=== PATIENT | male | born 1965 | race American Indian/Alaskan Native ===

== ENCOUNTER 2017-08-26 18:44 | Inpatient (IN) | payer OTHER ==
[2017-08-26 19:13] LABS: Basophils % (Auto) 0.8 % (0.0-1.8); Eosinophils % (Auto) 1.7 % (0.0-4.3); Hematocrit 40.3 % (35.5-45.6); Hemoglobin 13.6 gm/dl (11.8-15.2); Mean Corpuscular HGB Conc 34 % (32-34); Mean Corpuscular Hemoglobin 32 pg (28-32); Mean Corpuscular Volume 93 fl (84-94); Platelet Count 176 K/mm3 (140-440); Red Blood Count 4.32 M/mm3 (3.65-5.03); Red Cell Distribution Width 14.4 % (13.2-15.2)
[2017-08-26 19:20] LABS: INR 0.96 (0.87-1.13)
[2017-08-26 19:21] LABS: Partial Thromboplastin Time 29.9 Sec. (24.2-36.6)
[2017-08-26 19:32] LABS: Anion Gap 19 mmol/L; BUN/Creatinine Ratio 21; Blood Urea Nitrogen 19 mg/dL (9-20); Carbon Dioxide 18 mmol/L (22-30); Chloride 103.3 mmol/L (98-107); Glucose 102 mg/dL (75-100); Potassium 4.1 mmol/L (3.6-5.0); Sodium 136 mmol/L (137-145)
--- NOTE | 2017-08-26 19:46 | Cat Scan Report ---
FINAL REPORT EXAM: CT HEAD/BRAIN WO CON HISTORY: neuro deficits \T\lt; 6hrs or sx present upon awakening TECHNIQUE: CT head without contrast PRIORS: None. FINDINGS: No acute intra-axial or extra-axial hemorrhage is identified. There is no evidence of midline shift or mass effect. The ventricles and sulci are within normal limits. Sinclair-white matter differentiation is intact. No acute parenchymal abnormalities seen. Bony calvarium is grossly intact. Visualized portions of the mastoids and paranasal sinuses are unremarkable. IMPRESSION: Negative CT head
[2017-08-26] MEDS ORDERED: ASPIRIN PO ONE (22:18)
--- NOTE | 2017-08-26 22:23 | Emergency Department Report ---
HPI - General Chief Complaint: Neuro Symptoms/Deficit Time Seen by Provider: 08/26/17 22:05 - HPI HPI: Room 4 The patient is a 51-year-old male presented with chief complaint of right sided weakness. The patient states he went to sleep this morning at 10:00 in his normal state of health when he awakened at 14:00 he noticed numbness and weakness in his right lower extremity. The patient thought he slept on his leg "wrong" so he got up and walked around and states that the symptoms improve momentarily. At approximately 15:00 the numbness and weakness of the right lower extremity returned making it difficult for him to ambulate. Patient states 1.5 weeks ago while changing a tire he believes he injured his right shoulder has had pain since that time. The patient also complains of numbness and weakness in her right upper extremity which he states he been present for 1.5 weeks. Patient denies dysarthria or dysphagia. Patient has a history of right-sided Miller's palsy Location: Right upper extremity, right lower extremity Duration: [See above] Quality:, Weakness Severity: Moderate Modifying factors: [see above] Context: [see above] Mode of transportation: [not driving] ED Past Medical Hx - Past Medical History Previous Medical History?: Yes Additional medical history: Miller's Palsy - Surgical History Past Surgical History?: No - Family History Family history: no significant - Social History Smoking Status: Current Some Day Smoker Substance Use Type: None (denies illicit drug use) - Medications Home Medications: Home Medications Medication Instructions Recorded Confirmed Last Taken Type Ibuprofen 800 mg PO PRN 08/26/17 08/26/17 Unknown History ED Review of Systems ROS: Stated complaint: RIGHT SIDE NUMBNESS Other details as noted in HPI Comment: All other systems reviewed and negative Constitutional: denies: chills, fever Eyes: denies: eye pain, eye discharge, vision change ENT: denies: ear pain, throat pain Respiratory: denies: cough, shortness of breath, wheezing Cardiovascular: denies: chest pain, palpitations Endocrine: no symptoms reported Gastrointestinal: denies: abdominal pain, nausea, diarrhea Genitourinary: denies: urgency, dysuria Musculoskeletal: denies: back pain, joint swelling, arthralgia Skin: denies: rash, lesions Neurological: weakness, paresthesias. denies: headache Psychiatric: denies: anxiety, depression Hematological/Lymphatic: denies: easy bleeding, easy bruising Physical Exam - Physical Exam Vital Signs: Vital Signs 08/26/17 18:53 Temperature 98.7 F Pulse Rate 71 Respiratory 18 Rate Blood Pressure 167/96 O2 Sat by Pulse 98 Oximetry Physical Exam: GENERAL: The patient is well-developed well-nourished male lying on a stretcher with obvious right facial droop from Miller's palsy. [] HEENT: Normocephalic. Atraumatic. Extraocular motions are intact. Right facial droop NECK: Supple. Trachea midline CHEST/LUNGS: There is no respiratory distress noted. HEART/CARDIOVASCULAR: Regular. There is no tachycardia. There is no gallop rub or murmur. ABDOMEN: Abdomen is soft, nontender. Patient has normal bowel sounds. There is no abdominal distention. SKIN: There is no rash. There is no edema. There is no diaphoresis. NEURO: The patient is awake, alert, and oriented. The patient is cooperative. Patient has a right seventh nerve palsy otherwise cranial nerves II through XII grossly intact. Patient is unable to raise right upper extremity and hold it off of the bed for more than one second. Bead Preparer equal bilaterally. Patient exhibits more difficulty flexing right lower extremity at the knee and hip compared to the left. The patient has normal speech MUSCULOSKELETAL: There is no evidence of acute injury. ED Course Vital Signs 08/26/17 18:53 Temperature 98.7 F Pulse Rate 71 Respiratory 18 Rate Blood Pressure 167/96 O2 Sat by Pulse 98 Oximetry ED Medical Decision Making - Lab Data Result diagrams: 08/26/17 18:49 08/26/17 18:49 Laboratory Tests 08/26/17 08/26/17 08/26/17 18:49 18:49 18:49 WBC 8.0 RBC 4.32 Hgb 13.6 Hct 40.3 MCV 93 MCH 32 MCHC 34 RDW 14.4 Plt Count 176 Lymph % (Auto) 33.5 [place] % (Auto) 10.8 H Eos % (Auto) 1.7 Baso % (Auto) 0.8 Lymph # 2.7 [place] # 0.9 H Eos # 0.1 Baso # 0.1 Seg Neutrophils % 53.2 Seg Neutrophils # 4.2 PT 13.3 INR 0.96 APTT 29.9 Thrombin Time Sodium 136 L Potassium 4.1 Chloride 103.3 Carbon Dioxide 18 L Anion Gap 19 BUN 19 Creatinine 0.9 Estimated GFR > 60 BUN/Creatinine Ratio 21 Glucose 102 H Calcium 9.0 Troponin T < 0.010 08/26/17 18:49 WBC RBC Hgb Hct MCV MCH MCHC RDW Plt Count Lymph % (Auto) [place] % (Auto) Eos % (Auto) Baso % (Auto) Lymph # [place] # Eos # Baso # Seg Neutrophils % Seg Neutrophils # PT INR APTT Thrombin Time 15.6 Sodium Potassium Chloride Carbon Dioxide Anion Gap BUN Creatinine Estimated GFR BUN/Creatinine Ratio Glucose Calcium Troponin T - EKG Data -: EKG Interpreted by Me EKG shows normal: sinus rhythm Rate: normal - EKG Data When compared to previous EKG there are: previous EKG unavailable Interpretation: nonspecific ST-T wave bruce (biphasic T-wave in lead 3) - Radiology Data Radiology results: report reviewed (CT head), image reviewed (CT head) CT head (read by radiologist)-negative CT head - Differential Diagnosis CVA, TIA Critical care attestation.: If time is entered above; I have spent that time in minutes in the direct care of this critically ill patient, excluding procedure time. ED Disposition Clinical Impression: CVA (cerebral vascular accident) Disposition: DC-09 OP ADMIT IP TO THIS HOSP Is pt being admited?: Yes Does the pt Need Aspirin: Yes Condition: Serious Referrals: PRIMARY CARE, [Primary Care Provider] - 3-5 Days Time of Disposition: 22:28 (hospitalist paged)
--- NOTE | 2017-08-26 23:07 | History and Physical Report ---
History of Present Illness Date of examination: 08/26/17 Date of admission: 08/26/17 22:29 Chief complaint: Right sided weakness and numbness History of present illness: 51-year-old [place] male with past medical history significant for hypertension, right fascial palsy presented to the emergency department with complaints of right-sided numbness and weakness. Patient said he went to bed at 10:30 this morning and when he woke up at 2 PM he couldn't stand up and find that he has weakness and numbness of the right upper and lower extremities. He has decreased medical referral coordinator on his right upper extremity. Patient denied headache, seizure-like activity, chest pain, palpitation. He shouldn't denied difficulty of swallowing, slurred speech. Patient was not on any blood pressure medications. REVIEW OF SYSTEMS: GENERAL: no weight change, no fatigue, no fever HEAD: no head ache EYES: no blurry vision, no acute visual loss EARS: no hearing loss, no discharge, no earache NOSE: no stuffiness, no sneezing, no discharge MOUTH, THROAT AND NECK: no bleeding gums, no sore throat, no swollen neck CARDIAC: no palpitations, no dyspnea on exertion, no orthopnea, no PND, no edema , no chest pain RESPIRATORY: no shortness of breath, no wheeze, no cough, no sputum, no hemoptysis, no asthma GI: no decreased appetite, no nausea, no vomiting, no dysphagia, no diarrhea, no constipation, no abdominal pain URINARY: no change in frequency, no urgency, no polyuria, no hematuria, no incontinence MUSCULOSKELETAL: no muscle weakness, no pain, no joint stiffness NEUROLOGIC: Weakness and numbness of the right extremities. HEMATOLOGIC: no anemia, no easy bruising SKIN: no rashes ENDOCRINE: no heat/cold intolerance, no polyuria, no polydipsia, no thyroid problems, no diabetes PSYCHIATRIC: no anxiety, no depression, no suicidal ideations Past History Past Medical History: hypertension Past Surgical History: No surgical history Social history: smoking (occasionally), full code. denies: alcohol abuse, prescription drug abuse, IV drug use Family history: no significant family history Medications and Allergies Allergies Allergy/AdvReac Type Severity Reaction Status Date / Time No Known Allergies Allergy Verified 08/26/17 18:53 Home Medications Medication Instructions Recorded Confirmed Last Taken Type Ibuprofen 800 mg PO PRN 08/26/17 08/26/17 Unknown History Exam - Physical Exam Narrative exam: Not in cardiopulmonary distress. The patient appeared well nourished and normally developed. Vital signs as documented. Head exam is unremarkable. No scleral icterus . Neck is without jugular venous distension, thyromegaly, or carotid bruits. Lungs are clear to auscultation. Cardiac exam reveals regular rate and Rhythm. First and second heart sounds normal. No murmurs, rubs or gallops. Abdominal exam reveals normal bowel sounds, no masses, no organomegaly and no aortic enlargement. Extremities are nonedematous and both femoral and pedal pulses are normal. BODY REPAIRER: Right upper and lower extremity weakness, right facial droop. - Constitutional Vitals: Temp Pulse Resp BP Pulse Ox 98.7 F 71 18 167/96 98 08/26/17 18:53 08/26/17 18:53 08/26/17 18:53 08/26/17 18:53 08/26/17 18:53 Results - Labs CBC & Chem 7: 08/26/17 18:49 08/26/17 18:49 Labs: Laboratory Last Values WBC 8.0 K/mm3 (4.5-11.0) 08/26/17 18:49 RBC 4.32 M/mm3 (3.65-5.03) 08/26/17 18:49 Hgb 13.6 gm/dl (11.8-15.2) 08/26/17 18:49 Hct 40.3 % (35.5-45.6) 08/26/17 18:49 MCV 93 fl (84-94) 08/26/17 18:49 MCH 32 pg (28-32) 08/26/17 18:49 MCHC 34 % (32-34) 08/26/17 18:49 RDW 14.4 % (13.2-15.2) 08/26/17 18:49 Plt Count 176 K/mm3 (140-440) 08/26/17 18:49 Lymph % (Auto) 33.5 % (13.4-35.0) 08/26/17 18:49 [place] % (Auto) 10.8 % (0.0-7.3) H 08/26/17 18:49 Eos % (Auto) 1.7 % (0.0-4.3) 08/26/17 18:49 Baso % (Auto) 0.8 % (0.0-1.8) 08/26/17 18:49 Lymph # 2.7 K/mm3 (1.2-5.4) 08/26/17 18:49 [place] # 0.9 K/mm3 (0.0-0.8) H 08/26/17 18:49 Eos # 0.1 K/mm3 (0.0-0.4) 08/26/17 18:49 Baso # 0.1 K/mm3 (0.0-0.1) 08/26/17 18:49 Seg Neutrophils % 53.2 % (40.0-70.0) 08/26/17 18:49 Seg Neutrophils # 4.2 K/mm3 (1.8-7.7) 08/26/17 18:49 PT 13.3 Sec. (12.2-14.9) 08/26/17 18:49 INR 0.96 (0.87-1.13) 08/26/17 18:49 APTT 29.9 Sec. (24.2-36.6) 08/26/17 18:49 Thrombin Time 15.6 Sec. (15.1-19.6) 08/26/17 18:49 Sodium 136 mmol/L (137-145) L 08/26/17 18:49 Potassium 4.1 mmol/L (3.6-5.0) 08/26/17 18:49 Chloride 103.3 mmol/L (98-107) 08/26/17 18:49 Carbon Dioxide 18 mmol/L (22-30) L 08/26/17 18:49 Anion Gap 19 mmol/L 08/26/17 18:49 BUN 19 mg/dL (9-20) 08/26/17 18:49 Creatinine 0.9 mg/dL (0.8-1.5) 08/26/17 18:49 Estimated GFR > 60 ml/min 08/26/17 18:49 BUN/Creatinine Ratio 21 % 08/26/17 18:49 Glucose 102 mg/dL (75-100) H 08/26/17 18:49 Calcium 9.0 mg/dL (8.4-10.2) 08/26/17 18:49 Troponin T < 0.010 ng/mL (0.00-0.029) 08/26/17 18:49 - Imaging and Cardiology CT Scan - head: report reviewed (No acute IC finding) Assessment and Plan Assessment and plan: Acute CVA - Patient was out of the window period When he presented to the emergency department - On aspirin, statin - CVA workup, neurology consult - PT/OT Hypertension - Permissive hypertension DVT prophylaxis - Lovenox Disposition - Admitted to telemetry Advance Directives: Yes VTE prophylaxis?: Chemical Plan of care discussed with patient/family: Yes
[2017-08-26] MEDS ORDERED: MILK OF MAGNESIA PO PRN (23:08)
[2017-08-26] MEDS ORDERED: SODIUM CHLORIDE FLUSH SYRINGE 10 ML IV PRN (23:08)
[2017-08-26] MEDS ORDERED: REGLAN PO PRN (23:08)
[2017-08-26] MEDS ORDERED: PHENERGAN PR PRN (23:08)
[2017-08-26] MEDS ORDERED: DULCOLAX PR PRN (23:08)
[2017-08-26] MEDS ORDERED: ZOFRAN IV PRN (23:08)
[2017-08-27 01:56] LABS: Urine Drugs of Abuse Note Disclamer
[2017-08-27] MEDS ORDERED: ASPIRIN PR SCH (10:00)
--- NOTE | 2017-08-27 12:17 | Consultation ---
History of Present Illness - Reason for Consult Consult date: 08/27/17 stroke - History of Present Illness went over the CT of the head and itis normal do not have formal report on the MRI as yet onset of symptoms and signs with right leg paralysis clinically suspect a stroke will review the studies Thanks plan to follow Past History Past Medical History: hypertension Past Surgical History: No surgical history Social history: smoking (occasionally), full code. denies: alcohol abuse, prescription drug abuse, IV drug use Family history: no significant family history Medications and Allergies Allergies Allergy/AdvReac Type Severity Reaction Status Date / Time No Known Allergies Allergy Verified 08/26/17 18:53 Home Medications Medication Instructions Recorded Confirmed Last Taken Type Ibuprofen 800 mg PO PRN 08/26/17 08/26/17 Unknown History Active Meds: Active Medications Acetaminophen (Tylenol) 650 mg PO Q4H PRN PRN Reason: Pain, Mild (1-3) Aspirin (Aspirin) 300 mg CA QDAY LILA Bisacodyl (Dulcolax) 10 mg CA QDAY PRN PRN Reason: Constipation Docusate Sodium (Colace) 100 mg PO BID LILA Magnesium Hydroxide (Milk Of Magnesia) 30 ml PO Q4H PRN PRN Reason: Constipation Metoclopramide HCl (Reglan) 10 mg PO Q6H PRN PRN Reason: Nausea And Vomiting Ondansetron HCl (Zofran) 4 mg IV Q8H PRN PRN Reason: N/V unrelieved by Reglan Promethazine HCl (Phenergan) 25 mg CA Q6H PRN PRN Reason: Nausea And Vomiting Simvastatin (Zocor) 20 mg PO QHS LILA Sodium Chloride (Sodium Chloride Flush Syringe 10 Ml) 10 ml IV PRN PRN PRN Reason: LINE FLUSH Exam - Constitutional Vitals: Temp Pulse Resp BP Pulse Ox 98.8 F 72 18 146/82 99 08/26/17 23:45 08/27/17 05:00 08/27/17 05:00 08/27/17 05:00 08/27/17 05:00 Results - Labs CBC & Chem 7: 08/26/17 18:49 08/26/17 18:49 Labs: Abnormal lab results 08/27/17 Range/Units 05:14 Triglycerides 321 H (2-149) mg/dL Cholesterol 237 H (50-199) mg/dL LDL Cholesterol Direct 140 H (50-130) mg/dL HDL Cholesterol 33 L (40-59) mg/dL
[2017-08-27] MEDS: COLACE PO SCH ×2 (12:58→21:36)
[2017-08-27] MEDS ORDERED: ASPIRIN ONE (13:01)
[2017-08-27] MEDS: ASPIRIN PO SCH ×2 (13:04→15:31)
--- NOTE | 2017-08-27 13:29 | Magnetic Resonance Report ---
MRI scan of brain: History: Stroke. Technique: Multiplanar multisequence images were obtained without contrast injection. Findings: There is focal area of restricted diffusion noted in the left basal ganglia. Area appears mildly hyperintense on flair and T2-weighted images. No hemorrhage is seen. No extra-axial fluid collection. Normal brainstem and cerebellum. Normal sinuses and mastoid air cells. Impression: Acute ischemia left basal ganglia. No hemorrhage.
--- NOTE | 2017-08-27 13:31 | Magnetic Resonance Report ---
MRA of the brain with 3-D image processing: History: Stroke. Findings: The vessels of [place] are widely patent. No evidence of stenosis occlusion aneurysm or vascular malformation. The vertebral arteries are codominant with normal basilar artery. Hypoplastic posterior communicating arteries. Impression: Essentially negative MRA of the brain:
--- NOTE | 2017-08-27 19:19 | Progress Note ---
Assessment and Plan Assessment and plan: 51 years old -[place]iqu[place] male weight hypertension, right facial palsy, presented for right-sided numbness and weakness 1. Acute stroke On ER presentation out of the window for TPA administration CT head with no acute abnormality, but brain MRI showing acute ischemia left basal ganglia Carotid Doppler with <50% stenoses bilaterally Started on aspirin and statin PT/OT/ST consulted 2. Hyperlipidemia Newly diagnosed mixed hyperlipidemia - total cholesterol, LDL, triglycerides elevated, HDL low Increase statin dose 3. Hypertension Hold antihypertensive and allow permissive hypertension with SPB goal around 160 4. Obesity Counseled regarding importance of losing weight, lifestyle changes, increased physical activity 5. Drug use Denies, but UDS positive for marijuana Counseled regarding importance of quitting 6. DVT prophylaxis History Interval history: Complaining of right-sided numbness/weakness Hospitalist Physical - Constitutional Vitals: Temp Pulse Resp BP Pulse Ox 98.5 F 60 20 167/101 95 08/27/17 17:09 08/27/17 17:09 08/27/17 17:09 08/27/17 17:09 08/27/17 17:09 General appearance: Present: no acute distress - EENT Eyes: Present: PERRL, EOM intact. Absent: scleral icterus, conjunctival injection - Neck Neck: Present: supple, normal ROM. Absent: masses or JVD - Respiratory Respiratory effort: normal Respiratory: bilateral: CTA, negative: rales, rhonchi - Cardiovascular Rhythm: regular Heart Sounds: Present: S1 & S2. Absent: systolic murmur - Extremities Extremities: no ischemia - Abdominal General gastrointestinal: soft, non-tender, non-distended, normal bowel sounds - Psychiatric Psychiatric: other (flat affect) - Neurologic Neurologic: other (facial droop, right-sided lexii-paresis) Results - Labs CBC & Chem 7: 08/26/17 18:49 08/26/17 18:49 Labs: Laboratory Last Values WBC 8.0 K/mm3 (4.5-11.0) 08/26/17 18:49 RBC 4.32 M/mm3 (3.65-5.03) 08/26/17 18:49 Hgb 13.6 gm/dl (11.8-15.2) 08/26/17 18:49 Hct 40.3 % (35.5-45.6) 08/26/17 18:49 MCV 93 fl (84-94) 08/26/17 18:49 MCH 32 pg (28-32) 08/26/17 18:49 MCHC 34 % (32-34) 08/26/17 18:49 RDW 14.4 % (13.2-15.2) 08/26/17 18:49 Plt Count 176 K/mm3 (140-440) 08/26/17 18:49 Lymph % (Auto) 33.5 % (13.4-35.0) 08/26/17 18:49 [place] % (Auto) 10.8 % (0.0-7.3) H 08/26/17 18:49 Eos % (Auto) 1.7 % (0.0-4.3) 08/26/17 18:49 Baso % (Auto) 0.8 % (0.0-1.8) 08/26/17 18:49 Lymph # 2.7 K/mm3 (1.2-5.4) 08/26/17 18:49 [place] # 0.9 K/mm3 (0.0-0.8) H 08/26/17 18:49 Eos # 0.1 K/mm3 (0.0-0.4) 08/26/17 18:49 Baso # 0.1 K/mm3 (0.0-0.1) 08/26/17 18:49 Seg Neutrophils % 53.2 % (40.0-70.0) 08/26/17 18:49 Seg Neutrophils # 4.2 K/mm3 (1.8-7.7) 08/26/17 18:49 PT 13.3 Sec. (12.2-14.9) 08/26/17 18:49 INR 0.96 (0.87-1.13) 08/26/17 18:49 APTT 29.9 Sec. (24.2-36.6) 08/26/17 18:49 Thrombin Time 15.6 Sec. (15.1-19.6) 08/26/17 18:49 Sodium 136 mmol/L (137-145) L 08/26/17 18:49 Potassium 4.1 mmol/L (3.6-5.0) 08/26/17 18:49 Chloride 103.3 mmol/L (98-107) 08/26/17 18:49 Carbon Dioxide 18 mmol/L (22-30) L 08/26/17 18:49 Anion Gap 19 mmol/L 08/26/17 18:49 BUN 19 mg/dL (9-20) 08/26/17 18:49 Creatinine 0.9 mg/dL (0.8-1.5) 08/26/17 18:49 Estimated GFR > 60 ml/min 08/26/17 18:49 BUN/Creatinine Ratio 21 % 08/26/17 18:49 Glucose 102 mg/dL (75-100) H 08/26/17 18:49 Calcium 9.0 mg/dL (8.4-10.2) 08/26/17 18:49 Troponin T < 0.010 ng/mL (0.00-0.029) 08/26/17 18:49 Triglycerides 321 mg/dL (2-149) H 08/27/17 05:14 Cholesterol 237 mg/dL (50-199) H 08/27/17 05:14 LDL Cholesterol Direct 140 mg/dL (50-130) H 08/27/17 05:14 HDL Cholesterol 33 mg/dL (40-59) L 08/27/17 05:14 Cholesterol/HDL Ratio 7.18 % 08/27/17 05:14 Urine Opiates Screen Presumptive negative 08/27/17 01:28 Urine Methadone Screen Presumptive negative 08/27/17 01:28 Ur Barbiturates Screen Presumptive negative 08/27/17 01:28 Ur Phencyclidine Scrn Presumptive negative 08/27/17 01:28 Ur Amphetamines Screen Presumptive negative 08/27/17 01:28 U Benzodiazepines Scrn Presumptive negative 08/27/17 01:28 Urine Cocaine Screen Presumptive negative 08/27/17 01:28 U Marijuana (THC) Screen Presumptive positive 08/27/17 01:28 Drugs of Abuse Note Disclamer 08/27/17 01:28 - Imaging and Cardiology CT scan - abdomen: report reviewed (with no acute abnormality) MRI - head: report reviewed (acute ischemia left basal ganglia)
[2017-08-27] MEDS: ZOCOR PO SCH (21:35)
[2017-08-27] MEDS ORDERED: ZOCOR PO SCH (22:00)
[2017-08-28] MEDS: TYLENOL PO PRN ×2 (07:08→18:06)
[2017-08-28] MEDS ORDERED: ASPIRIN PO SCH (10:00)
[2017-08-28] MEDS: ASPIRIN PO SCH (10:56)
[2017-08-28] MEDS: COLACE PO SCH ×2 (10:58→22:45)
--- NOTE | 2017-08-28 13:23 | Consultation ---
History of Present Illness - Reason for Consult Consult date: 08/28/17 stroke - History of Present Illness see my note from last evening the MRI does show stroke of the lacunar type due to small vessel disease.... interesting that he had prior hx of true Miller's Palsy on the right side the new stroke does not involve the Right facial motor area !! Past History Past Medical History: hypertension Past Surgical History: No surgical history Social history: smoking (occasionally), full code. denies: alcohol abuse, prescription drug abuse, IV drug use Family history: no significant family history Medications and Allergies Allergies Allergy/AdvReac Type Severity Reaction Status Date / Time No Known Allergies Allergy Verified 08/26/17 18:53 Home Medications Medication Instructions Recorded Confirmed Last Taken Type Ibuprofen 800 mg PO PRN 08/26/17 08/26/17 Unknown History Active Meds: Active Medications Acetaminophen (Tylenol) 650 mg PO Q4H PRN PRN Reason: Pain, Mild (1-3) Last Admin: 08/28/17 07:08 Dose: 650 mg Aspirin (Aspirin) 325 mg PO QDAY [facility] Last Admin: 08/28/17 10:56 Dose: 325 mg Bisacodyl (Dulcolax) 10 mg [place] QDAY PRN PRN Reason: Constipation Docusate Sodium (Colace) 100 mg PO BID [facility] Last Admin: 08/28/17 10:58 Dose: 100 mg Magnesium Hydroxide (Milk Of Magnesia) 30 ml PO Q4H PRN PRN Reason: Constipation Metoclopramide HCl (Reglan) 10 mg PO Q6H PRN PRN Reason: Nausea And Vomiting Ondansetron HCl (Zofran) 4 mg IV Q8H PRN PRN Reason: N/V unrelieved by Reglan Promethazine HCl (Phenergan) 25 mg MS Q6H PRN PRN Reason: Nausea And Vomiting Simvastatin (Zocor) 40 mg PO QHS [facility] Last Admin: 08/27/17 21:35 Dose: 40 mg Sodium Chloride (Sodium Chloride Flush Syringe 10 Ml) 10 ml IV PRN PRN PRN Reason: LINE FLUSH Exam - Constitutional Vitals: Temp Pulse Resp BP Pulse Ox 98.3 F 59 L 20 170/92 100 08/28/17 06:14 08/28/17 12:52 08/28/17 09:13 08/28/17 06:14 08/28/17 06:14 Results - Labs CBC & Chem 7: 08/26/17 18:49 08/26/17 18:49
--- NOTE | 2017-08-28 14:06 | Progress Note ---
Assessment and Plan Assessment and plan: 51 years old -[place] male weight hypertension, right facial palsy, presented for right-sided numbness and weakness 1. Acute stroke On ER presentation out of the window for TPA administration CT head with no acute abnormality, but brain MRI showing acute ischemia left basal ganglia Carotid Doppler with <50% stenoses bilaterally Started on aspirin and statin PT/OT/ST consulted 2. Right Miller's palsy 3. Hyperlipidemia Newly diagnosed mixed hyperlipidemia - total cholesterol, LDL, triglycerides elevated, HDL low Started on statin after diagnosed with stroke; dose increased 4. Hypertension Hold antihypertensive and allow permissive hypertension with SPB goal around 160 If BP remains elevated, start HCTZ tomorrow 5. Obesity Counseled regarding importance of losing weight, lifestyle changes, increased physical activity 6. Drug use Denies, but UDS positive for marijuana Counseled regarding importance of quitting 7. Right shoulder pain Musculoskeletal due to overuse as he works as a radio frequency design engineer 8. DVT prophylaxis History Interval history: c/o right shoulder pain Hospitalist Physical - Constitutional Vitals: Temp Pulse Resp BP Pulse Ox 98.3 F 59 L 20 170/97 100 08/28/17 06:14 08/28/17 12:52 08/28/17 09:13 08/28/17 13:22 08/28/17 13:26 General appearance: Present: no acute distress - EENT Eyes: Present: PERRL, EOM intact - Neck Neck: Present: supple, normal ROM. Absent: masses or JVD - Respiratory Respiratory effort: normal Respiratory: bilateral: CTA, negative: rhonchi, wheezing - Cardiovascular Rhythm: regular Heart Sounds: Present: S1 & S2. Absent: systolic murmur - Extremities Extremities: no ischemia - Abdominal General gastrointestinal: soft, non-tender, non-distended, normal bowel sounds - Psychiatric Psychiatric: cooperative - Neurologic Neurologic: other (facial asymmetry) Results - Labs CBC & Chem 7: 08/26/17 18:49 08/26/17 18:49 Labs: Laboratory Last Values WBC 8.0 K/mm3 (4.5-11.0) 08/26/17 18:49 RBC 4.32 M/mm3 (3.65-5.03) 08/26/17 18:49 Hgb 13.6 gm/dl (11.8-15.2) 08/26/17 18:49 Hct 40.3 % (35.5-45.6) 08/26/17 18:49 MCV 93 fl (84-94) 08/26/17 18:49 MCH 32 pg (28-32) 08/26/17 18:49 MCHC 34 % (32-34) 08/26/17 18:49 RDW 14.4 % (13.2-15.2) 08/26/17 18:49 Plt Count 176 K/mm3 (140-440) 08/26/17 18:49 Lymph % (Auto) 33.5 % (13.4-35.0) 08/26/17 18:49 [place] % (Auto) 10.8 % (0.0-7.3) H 08/26/17 18:49 Eos % (Auto) 1.7 % (0.0-4.3) 08/26/17 18:49 Baso % (Auto) 0.8 % (0.0-1.8) 08/26/17 18:49 Lymph # 2.7 K/mm3 (1.2-5.4) 08/26/17 18:49 [place] # 0.9 K/mm3 (0.0-0.8) H 08/26/17 18:49 Eos # 0.1 K/mm3 (0.0-0.4) 08/26/17 18:49 Baso # 0.1 K/mm3 (0.0-0.1) 08/26/17 18:49 Seg Neutrophils % 53.2 % (40.0-70.0) 08/26/17 18:49 Seg Neutrophils # 4.2 K/mm3 (1.8-7.7) 08/26/17 18:49 PT 13.3 Sec. (12.2-14.9) 08/26/17 18:49 INR 0.96 (0.87-1.13) 08/26/17 18:49 APTT 29.9 Sec. (24.2-36.6) 08/26/17 18:49 Thrombin Time 15.6 Sec. (15.1-19.6) 08/26/17 18:49 Sodium 136 mmol/L (137-145) L 08/26/17 18:49 Potassium 4.1 mmol/L (3.6-5.0) 08/26/17 18:49 Chloride 103.3 mmol/L (98-107) 08/26/17 18:49 Carbon Dioxide 18 mmol/L (22-30) L 08/26/17 18:49 Anion Gap 19 mmol/L 08/26/17 18:49 BUN 19 mg/dL (9-20) 08/26/17 18:49 Creatinine 0.9 mg/dL (0.8-1.5) 08/26/17 18:49 Estimated GFR > 60 ml/min 08/26/17 18:49 BUN/Creatinine Ratio 21 % 08/26/17 18:49 Glucose 102 mg/dL (75-100) H 08/26/17 18:49 Calcium 9.0 mg/dL (8.4-10.2) 08/26/17 18:49 Troponin T < 0.010 ng/mL (0.00-0.029) 08/26/17 18:49 Triglycerides 321 mg/dL (2-149) H 08/27/17 05:14 Cholesterol 237 mg/dL (50-199) H 08/27/17 05:14 LDL Cholesterol Direct 140 mg/dL (50-130) H 08/27/17 05:14 HDL Cholesterol 33 mg/dL (40-59) L 08/27/17 05:14 Cholesterol/HDL Ratio 7.18 % 08/27/17 05:14 Urine Opiates Screen Presumptive negative 08/27/17 01:28 Urine Methadone Screen Presumptive negative 08/27/17 01:28 Ur Barbiturates Screen Presumptive negative 08/27/17 01:28 Ur Phencyclidine Scrn Presumptive negative 08/27/17 01:28 Ur Amphetamines Screen Presumptive negative 08/27/17 01:28 U Benzodiazepines Scrn Presumptive negative 08/27/17 01:28 Urine Cocaine Screen Presumptive negative 08/27/17 01:28 U Marijuana (THC) Screen Presumptive positive 08/27/17 01:28 Drugs of Abuse Note Disclamer 08/27/17 01:28
[2017-08-28] MEDS: HCTZ PO SCH (15:01)
[2017-08-28] MEDS ORDERED: ZOCOR PO SCH (22:00)
[2017-08-29] MEDS: ZOCOR PO SCH (00:44)
--- NOTE | 2017-08-29 09:45 | Discharge Summary ---
Providers - Providers Date of Admission: 08/26/17 22:29 Date of discharge: 08/29/17 Attending physician: BRIGITTE BOYKIN 08/26/17 Consult to Physician [CONS] Routine Consulting Provider: BETY CASTILLO Reason For Exam: CVA Place consult to:: answering service Notified:: yes Phone number called:: [phone] Was contact made?: Yes If yes, spoke with:: Dayne Time called:: 08:33 08/26/17 23:08 Consult to Case Management [CONS] Routine Services Needed at Discharge: Occupational Therapy Physical Therapy Notified:: yes Phone number called:: [phone] Was contact made?: Yes If yes, spoke with:: Itzel Time called:: 08:38 Consult to Dietitian/Nutrition [CONS] Routine Physician Instructions: Reason For Exam: Reason for Consult: Nutrition Recommendations Reason for Consult: Diet education Occupational Therapy Evaluate and Treat [CONS] Routine Comment: Reason For Exam: Neuro deficits Physical Therapy Evaluation and Treat [CONS] Routine Comment: Reason For Exam: Neuro deficits 08/26/17 23:09 Speech Therapy Evaluation and Treat [CONS] Routine Reason For Exam: swallow eval Primary care physician: HYPERION ANALYST Hospitalization Condition: Serious Hospital course: Patient is a 51 years old -Italian male with hypertension, right facial palsy, who presented for right-sided numbness and weakness; on ER presentation out of window for TPA administration. CT had obtained and showed no acute abnormality, but brain MRI revealed acute ischemia left basal ganglia. Started on antiplatelet therapy and statin. Evaluated by PT/OT/ST. Permissive hypertension was allowed after stroke, then started on HCTZ; amlodipine 80s as BP remained consistently elevated. Extensively counseled regarding importance of adherence to treatment and follow-up appointments. Also counseled regarding marijuana use, lifestyle changes. Discharge diagnoses: 1. Acute stroke 2. Right Miller's palsy 3. Hyperlipidemia - mixed 4. Hypertension 5. Obesity 6. Drug use - marijuana 7. Right shoulder pain - musculoskeletal Disposition: DC-01 TO HOME OR SELFCARE Time spent for discharge: 35 min Core Measure Documentation - Palliative Care Palliative Care/ Comfort Measures: Not Applicable - Core Measures Any of the following diagnoses?: stroke - Stroke Discharge Requirements Statin for LDL = or >70 mg/dl on DC: Yes Anticoag for atrial fib/atrial flutter: Not Applicable Antithrombotic for ischemic stroke: Yes Exam - Physical Exam Narrative exam: Seen and examined: - Constitutional Vitals: Temp Pulse Resp BP Pulse Ox 98.1 F 67 20 155/96 96 08/29/17 05:23 08/29/17 05:23 08/29/17 05:23 08/29/17 05:23 08/29/17 05:20 General appearance: Present: no acute distress - EENT Eyes: Present: PERRL, EOM intact - Neck Neck: Present: supple, normal ROM. Absent: masses or JVD - Respiratory Respiratory effort: normal Respiratory: bilateral: CTA, negative: rhonchi, wheezing - Cardiovascular Rhythm: regular Heart Sounds: Present: S1 & S2. Absent: systolic murmur - Extremities Extremities: no ischemia - Abdominal General gastrointestinal: Present: soft, non-tender, non-distended, normal bowel sounds - Psychiatric Psychiatric: cooperative - Neurologic Neurologic: other (facial droop, right-sided weakness) Plan Activity: advance as tolerated, fall precautions Diet: low cholesterol, low salt Follow up with: PRIMARY CARE,MD [Primary Care Provider] - 3-5 Days Forms: Work/School Release Form(ED), Work/School Release Form Prescriptions: Simvastatin [Zocor TAB] 40 mg PO QHS #30 tablet amLODIPine [Norvasc] 5 mg PO DAILY #30 tab Aspirin [Aspirin EC] 81 mg PO DAILY #30 tablet. Hydrochlorothiazide [HCTZ] 25 mg PO QDAY #30 tablet Ibuprofen 800 mg PO PRN #10 tablet
[2017-08-29] MEDS: HCTZ PO SCH (10:18)
[2017-08-29] MEDS: COLACE PO SCH (10:19)
[2017-08-29] MEDS: ASPIRIN PO SCH (10:19)
[2017-08-29 10:48] VITALS: BP 146/81
== END 2017-08-29 11:50 | disposition home or self-care (01) | DRG 65 ==
LOC: ED 18:44 → 4A 22:29
PROVIDERS: ADMIT Internal Medicine; ATTEND Internal Medicine
DX: I63.9 Cerebral infarction, unspecified (principal); G81.91 Hemiplegia, unspecified affecting right dominant side; I10 Essential (primary) hypertension; G51.0 Bell's palsy; E78.5 Hyperlipidemia, unspecified; E66.9 Obesity, unspecified; F12.10 Cannabis abuse, uncomplicated; F17.200 Nicotine dependence, unspecified, uncomplicated; M25.511 Pain in right shoulder; Z71.51 Drug abuse counseling and surveillance of drug abuser; Z68.32 Body mass index [BMI] 32.0-32.9, adult
CPT/HCPCS: 36415; 70450; 70544; 70551; 80048; 80061; 80307; 84484; 85025; 85610; 85670; 85730; 93005; 93010; 93306; 93880; G8996-GN; G8997-GN; G8998-GN

== ENCOUNTER 2018-07-20 16:58 | Emergency (ER) | payer OTHER ==
[2018-07-20 17:05] VITALS: BP 129/75
[2018-07-20] MEDS ORDERED: MOTRIN PO ONE (20:31)
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
== END 2018-07-20 22:10 | disposition home or self-care (01) ==
LOC: ED 16:58
DX: S39.012A Strain of muscle, fascia and tendon of lower back, initial encounter (principal); V49.49XA Driver injured in collision with other motor vehicles in traffic accident, initial encounter; Y93.89 Activity, other specified; Y92.89 Other specified places as the place of occurrence of the external cause; Y99.8 Other external cause status
CPT/HCPCS: 72100

== ENCOUNTER 2019-02-09 10:23 | Emergency (ER) | payer OTHER ==
[2019-02-09 10:29] VITALS: BP 141/73
--- NOTE | 2019-02-09 11:42 | Emergency Department Report ---
ED Headache HPI - General Chief Complaint: Headache Stated Complaint: HBP Time Seen by Provider: 02/09/19 11:02 - History of Present Illness Initial Comments: Patient is a 53-year-old [place]ian male who has a past medical history of CVA and hypertension who has been off his blood pressure medicines for approximately 2 months because they were recall any was unable to get a prescription for a different type of blood pressure medication. Patient states that he began having a mild headache this morning. Patient gets headaches whenever his blood pressure rises. Patient states that when he feels the headache come on and his blood pressure is elevated he takes apple cider vinegar and lies down and which usually helps his symptoms. Patient states he did the same today. Patient Byers has systolic blood pressures in the 170s however he states after drinking the episode of rigors blood pressures improved as well as his headache. Blood pressure arrival 141/73. Patient denies any new focal neurological deficits. Patient states he has no chest pain shortness of breath at this time. Allergies/Adverse Reactions: Allergies No Known Allergies Allergy (Verified 07/20/18 17:03) Home Medications: Ambulatory Orders Aspirin [Aspirin EC] 81 mg PO DAILY #30 tablet. 08/29/17 Ibuprofen 800 mg PO PRN #10 tablet 08/29/17 Simvastatin [Zocor TAB] 40 mg PO QHS #30 tablet 08/29/17 amLODIPine [Norvasc] 5 mg PO DAILY #30 tab 08/29/17 hydroCHLOROthiazide [HCTZ] 25 mg PO QDAY #30 tablet 08/29/17 Cyclobenzaprine [Flexeril] 10 mg PO QHS PRN #10 tablet 07/20/18 Ibuprofen [Motrin] 600 mg PO Q8H PRN #30 tablet 07/20/18 Lisinopril/Hydrochlorothiazide [Zestoretic 10-12.5 mg Tablet] 1 each PO DAILY #30 tablet 02/09/19 ED Review of Systems ROS: Stated complaint: HBP Other details as noted in HPI Comment: All other systems reviewed and negative ED Past Medical Hx - Past Medical History Previous Medical History?: Yes Hx Hypertension: Yes Hx Congestive Heart Failure: No Hx Diabetes: No Hx Asthma: No Hx COPD: No Additional medical history: Millre's Palsy - Surgical History Past Surgical History?: No - Social History Smoking Status: Never Smoker Substance Use Type: None - Medications Home Medications: Home Medications Medication Instructions Recorded Confirmed Last Taken Type Aspirin [Aspirin EC] 81 mg PO DAILY #30 tablet. 08/29/17 Unknown Rx Ibuprofen 800 mg PO PRN #10 tablet 08/29/17 Unknown Rx Simvastatin [Zocor TAB] 40 mg PO QHS #30 tablet 08/29/17 Unknown Rx amLODIPine [Norvasc] 5 mg PO DAILY #30 tab 08/29/17 Unknown Rx hydroCHLOROthiazide [HCTZ] 25 mg PO QDAY #30 tablet 08/29/17 Unknown Rx Cyclobenzaprine [Flexeril] 10 mg PO QHS PRN #10 tablet 07/20/18 Unknown Rx Ibuprofen [Motrin] 600 mg PO Q8H PRN #30 tablet 07/20/18 Unknown Rx Lisinopril/Hydrochlorothiazide 1 each PO DAILY #30 tablet 02/09/19 Unknown Rx [Zestoretic 10-12.5 mg Tablet] ED Physical Exam - General Limitations: No Limitations General appearance: alert, in no apparent distress - Head Head exam: Present: atraumatic, normocephalic - Eye Eye exam: Present: normal appearance - ENT ENT exam: Present: mucous membranes moist - Neck Neck exam: Present: normal inspection - Respiratory Respiratory exam: Present: normal lung sounds bilaterally. Absent: respiratory distress, wheezes, rales, rhonchi - Cardiovascular Cardiovascular Exam: Present: regular rate, normal rhythm. Absent: systolic murmur, diastolic murmur, rubs, gallop - GI/Abdominal GI/Abdominal exam: Present: soft, normal bowel sounds. Absent: distended, tenderness, guarding, rebound - Rectal Rectal exam: Present: deferred - Extremities Exam Extremities exam: Present: normal inspection - Back Exam Back exam: Present: normal inspection - Neurological Exam Neurological exam: Present: alert, oriented X3, normal gait. Absent: CN II-XII intact (chronic right-sided facial droop) - Psychiatric Psychiatric exam: Present: normal affect, normal mood - Skin Skin exam: Present: warm, dry, intact, normal color. Absent: rash ED Course Vital Signs 02/09/19 10:26 Temperature 97.9 F Pulse Rate 66 Respiratory 16 Rate Blood Pressure 141/73 O2 Sat by Pulse 99 Oximetry ED Medical Decision Making - Medical Decision Making Patient given refill of his blood pressure medications. Patient discharged home. Critical care attestation.: If time is entered above; I have spent that time in minutes in the direct care of this critically ill patient, excluding procedure time. ED Disposition Clinical Impression: Hypertensive urgency Disposition: DC- TO HOME OR SELFCARE Is pt being admited?: No Condition: Stable Instructions: Hypertension (ED) Prescriptions: Lisinopril/Hydrochlorothiazide [Zestoretic 10-12.5 mg Tablet] 1 each PO DAILY #30 tablet Referrals: [facility] [Other] - 3-5 Days Forms: Work/School Release Form(ED) Time of Disposition: 11:40
== END 2019-02-09 11:54 | disposition home or self-care (01) ==
LOC: ED 10:23
DX: I16.0 Hypertensive urgency (principal); I10 Essential (primary) hypertension; G51.0 Bell's palsy
CPT/HCPCS: 99282

== ENCOUNTER 2021-11-09 20:14 | Emergency (ER) | payer SELFPAY | END 2021-11-09 22:00 | disposition left against medical advice (07) | LOC: ED 20:14 | DX: Z53.21 Procedure and treatment not carried out due to patient leaving prior to being seen by health care provider (principal); V49.9XXA Car occupant (driver) (passenger) injured in unspecified traffic accident, initial encounter; Y93.89 Activity, other specified; Y92.89 Other specified places as the place of occurrence of the external cause; Y99.8 Other external cause status ==